=== PATIENT | female | born 1950 | race Two or more races ===

== ENCOUNTER 2020-06-17 06:32 | Day surgery (SDC) | payer MEDICARE, MEDICAID ==
[~2020-06-17] VITALS: Ht 154.9 cm; Wt 77.0 kg
[2020-06-17] MEDS ORDERED: BUPIVACAINE/PF 0.5% ONE (06:50)
[2020-06-17] MEDS ORDERED: EPINEPHRINE 1 MG/ML, 1ML ONE (06:51)
[2020-06-17] MEDS ORDERED: ISOSULFAN BLUE 10 MG/ML, 5ML IV ONE (06:51)
[2020-06-17] MEDS ORDERED: EMPA1TAB PO (07:14)
[2020-06-17] MEDS ORDERED: PRAV20TA2 PO (07:14)
[2020-06-17] MEDS ORDERED: MULT-803 PO (07:14)
[2020-06-17] MEDS ORDERED: OMEP-110 PO (07:14)
[2020-06-17] MEDS ORDERED: PIOG30TA67 PO (07:14)
[2020-06-17] MEDS ORDERED: NIFE-6 PO (07:14)
[2020-06-17] MEDS ORDERED: METFORMIN PO (07:14)
[2020-06-17 07:18] VITALS: BP 175/93
[2020-06-17] MEDS ORDERED: CHLORHEXIDINE 15 ML UDC MM ONE (07:30)
[2020-06-17] MEDS ORDERED: LACTATED RINGERS 1,000 ML IV SCH (07:30)
[2020-06-17 08:26] LABS: ALANINE AMINOTRANSFERASE 27 U/L (12-78); ALBUMIN 3.9 g/dL (3.4-5.0); ANION GAP 10 mmol/L (5-15); CALCIUM 9.3 mg/dL (8.5-10.1); CHLORIDE 100 mmol/L (98-107); CREATININE 0.96 mg/dL (0.55-1.02)
[2020-06-17 08:28] LABS: ALKALINE PHOSPHATASE 78 U/L (45-117); BILIRUBIN,TOTAL 0.4 mg/dL (0.2-1.0); TOTAL PROTEIN 8.2 g/dL (6.4-8.2)
[2020-06-17] MEDS ORDERED: FENTANYL PF 250 MCG/5ML ONE (09:11)
[2020-06-17] MEDS ORDERED: LABETALOL 5MG/ML, 20ML IV PRN (10:00)
[2020-06-17] MEDS ORDERED: HALOPERIDOL 5 MG/ML IV PRN (10:00)
[2020-06-17] MEDS ORDERED: HYDROmorphone 1 MG/ML, 1ML INJ IVPush PRN (10:00)
[2020-06-17] MEDS ORDERED: ROCURONIUM 10 MG/ML,10ML ONE (10:00)
[2020-06-17] MEDS ORDERED: DEXAMETHASONE 4 MG/ML, 1ML ONE (10:00)
[2020-06-17] MEDS ORDERED: FENTANYL PF 100 MCG/2ML IV PRN (10:00)
[2020-06-17] MEDS ORDERED: OXYcodone 5 MG/5 ML ORAL.SOL UDC PO PRN (10:00)
[2020-06-17] MEDS ORDERED: CEFAZOLIN 1,000 MG ONE (10:00)
[2020-06-17] MEDS ORDERED: LORazepam 2 MG/ML, 1ML IVPush PRN (10:00)
[2020-06-17] MEDS ORDERED: ONDANSETRON 2MG/ML, 2ML ONE (10:00)
[2020-06-17] MEDS ORDERED: EPHEDRINE 50 MG/ML, 1ML IVPush PRN (10:00)
[2020-06-17] MEDS ORDERED: OXYcodone IR 5MG TABLET PO ONE (10:00)
[2020-06-17] MEDS ORDERED: ACETAMINOPHEN 500 MG TABLET PO ONE (10:00)
[2020-06-17] MEDS ORDERED: hydrALAzine 20 MG/ML, 1ML IV PRN (10:00)
[2020-06-17] MEDS ORDERED: SUCCINYLCHOLINE 20 MG/ML, 10ML ONE (10:00)
[2020-06-17] MEDS ORDERED: PROPOFOL 10 MG/ML, 20ML ONE (10:00)
[2020-06-17] MEDS ORDERED: METHOCARBAMOL 1,000 MG in DEXTROSE 5% 100 ML IV PRN (10:00)
[2020-06-17] MEDS ORDERED: MEPERIDINE/PF 25MG/0.5ML IVPush PRN (10:00)
[2020-06-17] MEDS ORDERED: ONDANSETRON 2MG/ML, 2ML IVPush PRN (10:00)
[2020-06-17] MEDS ORDERED: FENTANYL PF 100 MCG/2ML ONE ×2 (11:07→12:00)
[2020-06-17] MEDS ORDERED: OXYcodone 5 MG/5 ML ORAL.SOL UDC ONE (12:01)
== END 2020-06-17 14:20 | disposition home or self-care (01) ==
LOC: OUT 06:32 → EDSTATUS 10:30 → OUT 14:20
PROVIDERS: ATTEND Surgery
DX: C50.811 Malignant neoplasm of overlapping sites of right female breast (principal); E11.9 Type 2 diabetes mellitus without complications; I10 Essential (primary) hypertension; E78.5 Hyperlipidemia, unspecified; E66.9 Obesity, unspecified; J45.909 Unspecified asthma, uncomplicated; K21.9 Gastro-esophageal reflux disease without esophagitis; Z20.822 Contact with and (suspected) exposure to COVID-19; Z68.33 Body mass index [BMI] 33.0-33.9, adult; Z79.84 Long term (current) use of oral hypoglycemic drugs; Z79.899 Other long term (current) drug therapy; Z85.42 Personal history of malignant neoplasm of other parts of uterus; Z88.0 Allergy status to penicillin; Z90.49 Acquired absence of other specified parts of digestive tract; Z90.710 Acquired absence of both cervix and uterus
CPT/HCPCS: 19301; 36415; 38525; 38792; 76098; 80053; 87635; 88307; 88329; 88333; 93005; A9541; J0171; J0330; J0690; J1100; J2405; J2704; J3010; J7120; 88305

== ENCOUNTER 2020-07-08 06:11 | Day surgery (SDC) | payer MEDICARE ==
[~2020-07-08] VITALS: Ht 152.4 cm; Wt 77.3 kg
[~2020-07-08 06:11] MED LIST: EMPA1TAB PO; METFORMIN PO; MULT-803 PO; NIFE-6 PO; OMEP-110 PO; PIOG30TA67 PO; PRAV20TA2 PO
[2020-07-08] MEDS ORDERED: BUPIVACAINE/PF 0.5% ONE (06:52)
[2020-07-08] MEDS ORDERED: EPINEPHRINE 1 MG/ML, 1ML ONE (06:52)
[2020-07-08] MEDS ORDERED: CHLORHEXIDINE 15 ML UDC ONE (06:56)
[2020-07-08] MEDS ORDERED: LACTATED RINGERS 1,000 ML IV SCH (07:00)
[2020-07-08] MEDS ORDERED: LIDOCAINE-MPF 1%, 2ML INFIL ONE (07:00)
[2020-07-08] MEDS ORDERED: CHLORHEXIDINE 15 ML UDC MM ONE (07:00)
[2020-07-08 07:02] VITALS: BP 156/86
[2020-07-08] MEDS ORDERED: MIDAZOLAM 1 MG/ML, 2ML ONE (07:55)
[2020-07-08] MEDS ORDERED: FENTANYL PF 250 MCG/5ML ONE (07:56)
[2020-07-08] MEDS ORDERED: PROPOFOL 10 MG/ML, 20ML ONE (07:57)
[2020-07-08] MEDS ORDERED: LIDOCAINE-MPF 2% ,5ML ONE (07:57)
[2020-07-08] MEDS ORDERED: SUCCINYLCHOLINE 20 MG/ML, 10ML ONE (07:59)
[2020-07-08] MEDS ORDERED: ROCURONIUM 10 MG/ML,10ML ONE (07:59)
[2020-07-08] MEDS ORDERED: ONDANSETRON 2MG/ML, 2ML ONE (07:59)
[2020-07-08] MEDS ORDERED: CEFAZOLIN 1,000 MG ONE ×2 (08:06→08:07)
[2020-07-08] MEDS ORDERED: DEXAMETHASONE 4 MG/ML, 5ML ONE (08:07)
[2020-07-08] MEDS ORDERED: DIPHENHYDRAMINE 50 MG/ML, 1ML IVPush PRN ×2 (08:30)
[2020-07-08] MEDS ORDERED: ALBUTEROL SULFATE 2.5 MG/3 ML NPPB PRN (08:30)
[2020-07-08] MEDS ORDERED: MEPERIDINE/PF 25MG/0.5ML IVPush PRN (08:30)
[2020-07-08] MEDS ORDERED: LABETALOL 5MG/ML, 20ML IV PRN (08:30)
[2020-07-08] MEDS ORDERED: ACETAMINOPHEN 325 MG TABLET PO PRN (08:30)
[2020-07-08] MEDS ORDERED: PROMETHAZINE 25 MG/ML, 1ML IVPush PRN (08:30)
[2020-07-08] MEDS ORDERED: ONDANSETRON 2MG/ML, 2ML IVPush PRN (08:30)
[2020-07-08] MEDS ORDERED: hydrALAzine 20 MG/ML, 1ML IV PRN (08:30)
[2020-07-08] MEDS ORDERED: PROMETHAZINE 12.5 MG SUPP PR PRN (08:30)
[2020-07-08] MEDS ORDERED: HYDROmorphone 1 MG/ML, 1ML INJ IVPush PRN (08:30)
[2020-07-08] MEDS ORDERED: EPHEDRINE 50 MG/ML, 1ML IVPush PRN (08:30)
[2020-07-08] MEDS ORDERED: DIAZEPAM 5 MG/ML, 2ML IVPush PRN (08:30)
[2020-07-08] MEDS ORDERED: MIDAZOLAM 1 MG/ML, 2ML IV PRN (08:30)
[2020-07-08] MEDS ORDERED: OXYcodone 5 MG/5 ML ORAL.SOL UDC PO PRN (08:30)
[2020-07-08] MEDS ORDERED: KETOROLAC 30 MG/1 ML ONE (09:01)
[2020-07-08] MEDS ORDERED: FENTANYL PF 100 MCG/2ML ONE ×2 (09:17→09:55)
[2020-07-08] MEDS ORDERED: ONDA4TAB7 PO (09:51)
[2020-07-08] MEDS ORDERED: ACETAMINOPHEN 650 MG/20.3 ML UDC ONE (09:54)
[2020-07-08] MEDS ORDERED: OXYcodone 5 MG/5 ML ORAL.SOL UDC ONE (09:55)
[2020-07-08] MEDS ORDERED: LABETALOL 5MG/ML, 20ML ONE (10:05)
[2020-07-08] MEDS: FENTANYL PF 100 MCG/2ML IV PRN ×2 (10:09→10:24)
[2020-07-08] MEDS ORDERED: hydrALAzine 20 MG/ML, 1ML ONE (10:15)
== END 2020-07-08 13:25 | disposition home or self-care (01) ==
LOC: OUT 06:11
PROVIDERS: ATTEND Surgery
DX: C50.111 Malignant neoplasm of central portion of right female breast (principal); I10 Essential (primary) hypertension; E78.5 Hyperlipidemia, unspecified; E11.9 Type 2 diabetes mellitus without complications; J45.909 Unspecified asthma, uncomplicated; K21.9 Gastro-esophageal reflux disease without esophagitis; E66.9 Obesity, unspecified; Z68.31 Body mass index [BMI] 31.0-31.9, adult; Z20.822 Contact with and (suspected) exposure to COVID-19; Z79.84 Long term (current) use of oral hypoglycemic drugs; Z79.899 Other long term (current) drug therapy; Z88.0 Allergy status to penicillin; Z90.710 Acquired absence of both cervix and uterus; Z98.890 Other specified postprocedural states
CPT/HCPCS: 19303; 82962; 87635; 88305; 88307; C1729; J0171; J0330; J0360; J0690; J1100; J1885; J2250; J2405; J2704; J3010; J7120